=== PATIENT | female | born 1940 | race Two or more races ===

== ENCOUNTER 2017-06-18 09:51 | Outpatient (CLI) | payer OTHER | END 2017-06-18 10:47 | disposition home or self-care (01) | LOC: RX STUDY 09:51 | DX: R13.19 Other dysphagia (principal); E04.1 Nontoxic single thyroid nodule ==

== ENCOUNTER 2017-12-17 07:34 | Outpatient (CLI) | payer OTHER | END 2017-12-17 11:14 | disposition home or self-care (01) | LOC: NUCLEAR 07:34 | DX: I20.0 Unstable angina (principal); E78.2 Mixed hyperlipidemia; E11.8 Type 2 diabetes mellitus with unspecified complications; I25.10 Atherosclerotic heart disease of native coronary artery without angina pectoris | CPT/HCPCS: 78452; 93017; A9500; J0153 ==

== ENCOUNTER 2018-01-17 12:35 | Outpatient (CLI) | payer OTHER | END 2018-01-17 12:40 | disposition home or self-care (01) | LOC: RAD 12:35 | DX: S32.000A Wedge compression fracture of unspecified lumbar vertebra, initial encounter for closed fracture (principal) ==

== ENCOUNTER 2018-03-01 11:00 | Outpatient (CLI) | payer OTHER | END 2018-03-01 11:07 | disposition home or self-care (01) | LOC: MAMO-SONO 11:00 | DX: Z12.31 Encounter for screening mammogram for malignant neoplasm of breast (principal); Z87.898 Personal history of other specified conditions; N64.89 Other specified disorders of breast; E04.1 Nontoxic single thyroid nodule ==

== ENCOUNTER 2018-03-15 09:07 | Outpatient (CLI) | payer OTHER | END 2018-03-15 09:19 | disposition home or self-care (01) | LOC: TOM 09:07 | DX: K56.600 Partial intestinal obstruction, unspecified as to cause (principal) ==

== ENCOUNTER 2018-07-18 09:21 | Outpatient (CLI) | payer OTHER | END 2018-07-18 09:36 | disposition home or self-care (01) | LOC: MRI 09:21 | DX: M54.41 Lumbago with sciatica, right side (principal) | CPT/HCPCS: 72148 ==

== ENCOUNTER 2018-10-01 14:12 | Outpatient (CLI) | payer OTHER | END 2018-10-01 14:16 | disposition home or self-care (01) | LOC: RAD 14:12 | DX: S62.201A Unspecified fracture of first metacarpal bone, right hand, initial encounter for closed fracture (principal) ==

== ENCOUNTER 2018-10-11 09:33 | Outpatient (CLI) | payer OTHER | END 2018-10-11 09:43 | disposition home or self-care (01) | LOC: MRI 09:33 | DX: R10.31 Right lower quadrant pain (principal); R10.32 Left lower quadrant pain; K86.2 Cyst of pancreas | CPT/HCPCS: 72197; 74183; A9575 ==

== ENCOUNTER → 2019-01-02 | Outpatient (CLI) | payer OTHER | END | disposition home or self-care (01) | LOC: RX STUDY 09:15 | DX: R13.12 Dysphagia, oropharyngeal phase (principal) ==

== ENCOUNTER 2019-07-09 11:28 | Emergency (ER) | payer OTHER ==
[~2019-07-09] VITALS: Ht 154.9 cm; Wt 46.7 kg
[2019-07-09] MEDS ORDERED: LOSARTAN POTASS50 MG PO (11:58)
[2019-07-09] MEDS ORDERED: TENORMIN25 MG (11:58)
[2019-07-09] MEDS ORDERED: PLAVIX75 MG (11:59)
[2019-07-09] MEDS ORDERED: ISOSORBIDE DINI30 MG (11:59)
[2019-07-09] MEDS ORDERED: FORTAMET1000 MG PO (11:59)
[2019-07-09] MEDS ORDERED: ACID CONTROL150 MG (11:59)
[2019-07-09] MEDS ORDERED: SINGULAIR10 MG (12:00)
[2019-07-09] MEDS ORDERED: VENTOLIN HFA18 GM (12:00)
[2019-07-09] MEDS ORDERED: NORVASC2.5 M1 PO (12:01)
== END 2019-07-09 17:50 | disposition home or self-care (01) ==
LOC: ER 11:28
DX: N20.0 Calculus of kidney (principal)

== ENCOUNTER 2020-03-12 09:03 | Outpatient (CLI) | payer OTHER ==
[~2020-03-12 09:03] MED LIST: ACID CONTROL150 MG; FORTAMET1000 MG PO; ISOSORBIDE DINI30 MG; LOSARTAN POTASS50 MG PO; NORVASC2.5 M1 PO; PLAVIX75 MG; SINGULAIR10 MG; TENORMIN25 MG; VENTOLIN HFA18 GM
== END 2020-03-12 09:08 | disposition home or self-care (01) ==
LOC: RX STUDY 09:03
PROVIDERS: ATTEND Internal Medicine Gastroenterology
DX: R13.14 Dysphagia, pharyngoesophageal phase (principal)

== ENCOUNTER 2020-07-29 11:06 | Outpatient (CLI) | payer OTHER | END 2020-07-29 11:12 | disposition home or self-care (01) | LOC: LAB 11:06 | DX: N20.0 Calculus of kidney (principal) ==

== ENCOUNTER → 2020-08-18 | Outpatient (CLI) | payer OTHER | END | disposition home or self-care (01) | LOC: MRI 09:09 | DX: K86.2 Cyst of pancreas (principal); Q51.818 Other congenital malformations of uterus | CPT/HCPCS: 72197; 74183; A9575 ==

== ENCOUNTER 2020-10-04 10:19 | Outpatient (CLI) | payer OTHER | END 2020-10-04 10:28 | disposition home or self-care (01) | LOC: SONOGRAMA 10:19 → MAMO-SONO 10:45 | PROVIDERS: ATTEND Surgery | DX: E04.1 Nontoxic single thyroid nodule (principal) ==

== ENCOUNTER 2021-08-03 10:07 | Outpatient (CLI) | payer OTHER | END 2021-08-03 10:14 | disposition home or self-care (01) | LOC: LAB 10:07 | PROVIDERS: ATTEND Internal Medicine | DX: E11.65 Type 2 diabetes mellitus with hyperglycemia (principal); E04.2 Nontoxic multinodular goiter ==

== ENCOUNTER 2021-10-17 07:35 | Outpatient (CLI) | payer OTHER | END 2021-10-17 07:38 | disposition home or self-care (01) | LOC: TOM 07:35 | PROVIDERS: ATTEND Internal Medicine | DX: E04.2 Nontoxic multinodular goiter (principal) | CPT/HCPCS: 70491; Q9965 ==

== ENCOUNTER 2021-12-28 10:49 | Outpatient (CLI) | payer OTHER | END 2021-12-28 10:57 | disposition home or self-care (01) | LOC: LAB 10:49 | PROVIDERS: ATTEND Internal Medicine Hematology & Oncology | DX: I10 Essential (primary) hypertension (principal) ==

== ENCOUNTER 2022-01-06 08:28 | Outpatient (CLI) | payer OTHER | END 2022-01-06 08:48 | disposition home or self-care (01) | LOC: RAD 08:28 | PROVIDERS: ATTEND Internal Medicine Hematology & Oncology | DX: R13.10 Dysphagia, unspecified (principal); E04.2 Nontoxic multinodular goiter; Z87.39 Personal history of other diseases of the musculoskeletal system and connective tissue | CPT/HCPCS: 70543; 76536; Q9965; 70542 ==

== ENCOUNTER → 2022-09-21 | Outpatient (CLI) | payer OTHER | END | disposition home or self-care (01) | LOC: SONOGRAMA 09:35 | PROVIDERS: ATTEND Internal Medicine | DX: E04.2 Nontoxic multinodular goiter (principal); R22.1 Localized swelling, mass and lump, neck ==

== ENCOUNTER 2022-12-07 08:42 | Outpatient (CLI) | payer OTHER | END 2022-12-07 08:49 | disposition home or self-care (01) | LOC: TOM 08:42 | DX: K86.2 Cyst of pancreas (principal) | CPT/HCPCS: 74175; Q9965 ==

== ENCOUNTER 2024-09-11 13:14 | Outpatient (CLI) | payer OTHER | END 2024-09-11 13:21 | disposition home or self-care (01) | LOC: RAD 13:14 | PROVIDERS: ATTEND Internal Medicine Cardiovascular Disease | DX: M19.90 Unspecified osteoarthritis, unspecified site (principal); M46.47 Discitis, unspecified, lumbosacral region ==

== ENCOUNTER 2024-11-07 11:44 | Emergency (ER) | payer OTHER ==
[~2024-11-07] VITALS: Ht 157.5 cm; Wt 42.6 kg
== END 2024-11-07 18:34 | disposition home or self-care (01) ==
LOC: ER 11:44
DX: S09.8XXA Other specified injuries of head, initial encounter (principal); W18.39XA Other fall on same level, initial encounter; Y93.89 Activity, other specified; Y92.89 Other specified places as the place of occurrence of the external cause; J45.909 Unspecified asthma, uncomplicated; I25.10 Atherosclerotic heart disease of native coronary artery without angina pectoris; F03.90 Unspecified dementia, unspecified severity, without behavioral disturbance, psychotic disturbance, mood disturbance, and anxiety; Z88.6 Allergy status to analgesic agent

== ENCOUNTER 2024-11-13 11:08 | Outpatient (CLI) | payer OTHER | END 2024-11-13 11:12 | disposition home or self-care (01) | LOC: TOM 11:08 | PROVIDERS: ATTEND Internal Medicine Cardiovascular Disease | DX: I63.50 Cerebral infarction due to unspecified occlusion or stenosis of unspecified cerebral artery (principal); R51.9 Headache, unspecified ==